=== PATIENT | female | born 1960 | race African-American/Black ===

== ENCOUNTER 2024-02-14 06:22 | Emergency (ER) | payer SELFPAY ==
[2024-02-14] MEDS ORDERED: Iohexol 350 - 100 ML VIAL IV ONE (06:58)
[2024-02-14] MEDS ORDERED: NS 60 ML IV ONE (06:58)
[2024-02-14] MEDS ORDERED: Ondansetron 4 MG/2 ML VIAL IV ONE (10:39)
[2024-02-14] MEDS ORDERED: Morphine 4 MG/ML VIAL IV ONE (10:39)
[2024-04-04 12:51] LABS: BASO # 0.01 K/mm3 (0.02-0.10); EOS # 0.04 K/mm3 (0.04-0.40); EOS % 0.5 % (1.0-5.0); HEMATOCRIT 40.9 % (37.0-47.0); HEMOGLOBIN 12.5 g/dL (12.5-16.0); LYMPH# 1.78 K/mm3 (1.50-4.00); MEAN CELL VOLUME 93 fl (78-100); MEAN CORPUSCULAR HEMOGLOBIN 29 pg (27-31); MEAN CORPUSCULAR HGB CONC 31 g/dL (33-37); MEAN PLATELET VOLUME 10.7 fl (7.4-10.4); MONO # 0.32 K/mm3 (0.20-0.80); NEU # 6.45 K/mm3 (1.40-6.50); PLATELET COUNT 238 K/mm3 (130-400); RED BLOOD COUNT 4.39 M/mm3 (4.10-5.30); RED CELL DISTRIBUTION WIDTH 13.2 % (11.5-14.5); WHITE BLOOD COUNT 8.6 K/mm3 (4.8-10.8)
[2024-04-04 12:54] LABS: ALBUMIN 3.8 g/dL (3.4-4.8); ALT/SGPT 14 U/L (0-55); AST-SGOT 15 U/L (5-34); CALCIUM 9.6 mg/dL (8.3-10.5); CARBON DIOXIDE 25 mmol/L (23-31); GLUCOSE 143 mg/dL (65-105); LIPASE 26 U/L (8-78); SODIUM 142 mmol/L (136-145); TOTAL BILIRUBIN 0.3 mg/dL (0.2-1.2); TOTAL PROTEIN 7.3 g/dL (6.2-8.1); TROPONIN-I < 0.030 ng/mL (0.00-0.033)
[2024-04-04 13:32] LABS: URINE APPEARANCE CLEAR (CLEAR); URINE BILIRUBIN NEGATIVE (NEGATIVE); URINE BLOOD 1+ (NEGATIVE); URINE COLOR YELLOW (YELLOW); URINE GLUCOSE NEGATIVE (NEGATIVE); URINE KETONE NEGATIVE (NEGATIVE); URINE LEUKOCYTE ESTERASE NEGATIVE (NEGATIVE); URINE NITRATE NEGATIVE (NEGATIVE); URINE PROTEIN(semi-quant) NEGATIVE (NEGATIVE); URINE WBC 0-1 /hpf (0-3)
== END 2024-02-14 12:18 | disposition home or self-care (01) ==
LOC: ED 06:22
PROVIDERS: Physician Assistant
DX: K29.70 Gastritis, unspecified, without bleeding (principal); K21.9 Gastro-esophageal reflux disease without esophagitis
CPT/HCPCS: J2270; J2405; Q9967